=== PATIENT | female | born 1955 | race Caucasian/White ===

== ENCOUNTER 2019-11-22 12:05 | Day surgery (SDC) | payer BC ==
[2019-11-15 12:56] LABS: CLARITY,URINE CLEAR (Clear); GLUCOSE, URINE 100 mg/dl (Neg); KETONES,URINE NEGATIVE (Neg); LEUKOCYTE ESTERASE ,URINE TRACE (Neg); NITRITES, URINE NEGATIVE (Neg); OCCULT BLOOD,URINE NEGATIVE (Neg); PH,URINE 6.5 (4.8-8.0); PROTEIN,URINE NEGATIVE (Neg)
[2019-11-15 12:58] LABS: BASOPHILS # (AUTO) 0.1 X10'3 (0-0.2); BASOPHILS % (AUTO) 0.6 % (0-1); EOSINOPHILS # (AUTO) 0.2 X10'3 (0-0.9); EOSINOPHILS % (AUTO) 2.2 % (0-6); LYMPHOCYTES # (AUTO) 2.4 X10'3 (1.1-4.8); LYMPHOCYTES % (AUTO) 25.1 % (21-51); MEAN CORPUSCULAR HEMOGLOBIN 28.5 PG (27.0-31.0); MEAN CORPUSCULAR HGB CONC 33.3 g/dL (33.0-36.5); MEAN CORPUSCULAR VOLUME 85.5 FL (78-98); MEAN PLATELET VOLUME 8.6 FL (7.4-10.4); MONOCYTES # (AUTO) 1.2 X10'3 (0-0.9); MONOCYTES % (AUTO) 12.2 % (2-12); NEUTROPHILS # (AUTO) 5.7 X10'3 (1.8-7.7); NEUTROPHILS % (AUTO) 59.9 % (42-75); PRE OP HEMATOCRIT 39.8 % (35.0-45.0); PRE OP HEMOGLOBIN 13.3 g/dL (12.0-16.0); PRE OP PLATELET COUNT 309 X10'3 (140-440); RED BLOOD COUNT 4.66 X10'6 (4.20-5.60); RED CELL DISTRIBUTION WIDTH 17.4 % (11.5-14.5)
[2019-11-15 13:01] LABS: COLOR,URINE DARK YELLOW (Yellow); UA COLLECTION TYPE NON-SPECIFIED
[2019-11-15 13:04] LABS: BACTERIA,URINE FEW /HPF (Neg); MUCUS STRANDS NONE SEEN /LPF (Neg); RBC,URINE NONE SEEN /HPF (0-2); RENAL CELLS, URINE FEW /HPF; SQUAMOUS EPITHELIAL CELL,UR FEW /LPF (FEW); WBC,URINE 0-4 /HPF (0-4)
[2019-11-15 13:09] LABS: ALBUMIN 3.6 G/DL (3.4-5.0); ALBUMIN/GLOBULIN RATIO 0.8 (1.1-1.5); ALKALINE PHOSPHATASE 72 IU/L (46-116); BLOOD UREA NITROGEN 9 MG/DL (7-18); BUN/CREATININE RATIO 9.2 (6.6-38.0); CHLORIDE 99 MMOL/L (99-107); CREATININE 0.98 MG/DL (0.40-0.90); PRE OP ALT 26 U/L (30-65); PRE OP ANION GAP 11 (8-16); PRE OP AST 25 U/L (10-37); PRE OP BILIRUB, TOTAL 0.4 MG/DL (0.0-1.0); PRE OP GLUCOSE 128 MG/DL (70-104); PRE OP POTASSIUM 3.7 MMOL/L (3.4-5.1); PRE OP SODIUM 135 MMOL/L (135-145); TOTAL CARBON DIOXIDE 25.5 MMOL/L (24-32); TOTAL PROTEIN 7.9 G/DL (6.4-8.2); eGFR 58 ML/MIN
[2019-11-22] VITALS (7 sets, daily range): BP systolic 106–143; BP diastolic 64–80
[~2019-11-22] VITALS: Ht 167.6 cm; Wt 79.5 kg
[~2019-11-22 12:05] MED LIST: AMLO10TA13 PO; ATOR10TA70 PO; DOCUMENT DATE & TIME OF BETA-BLOCKER PO ONE; LISI40TA4 PO; METF-438 PO; METO50TA16 PO; PREG200C28 PO; ceFAZolin 1GM/D5W- ADD-VANTAGE 50 ML IV ONE; famotidine 20mg tablet PO ONE; ringers solution, lacted 1,000 ML IV SCH
[2019-11-22] MEDS ORDERED: metoprolol tartrate 50mg tablet PO ONE (12:35)
[2019-11-22] MEDS ORDERED: CLON-529 PO (12:36)
[2019-11-22] MEDS ORDERED: FLUO-12 PO (12:36)
[2019-11-22] MEDS ORDERED: ringers solution, lacted 1,000 ML IV SCH (12:46)
[2019-11-22] MEDS ORDERED: meperidine/PF 25mg/ml syringe IV PRN ×3 (12:50)
[2019-11-22] MEDS ORDERED: morphine 4 MG/ML inj SYRINge IV PRN (12:50)
[2019-11-22] MEDS ORDERED: proCHLORperazine 10 MG/2 ml inj IV PRN (12:50)
[2019-11-22] MEDS ORDERED: morphine 2 MG/ML inj. syringe IV PRN (12:50)
[2019-11-22] MEDS ORDERED: ondansetron/PF 4mg/2ml inj IV PRN (12:50)
[2019-11-22] MEDS ORDERED: ondansetron/PF 4mg/2ml inj ONE (13:27)
[2019-11-22] MEDS ORDERED: dexamethasone sod phosphate 10mg/ml inj ONE (13:27)
[2019-11-22] MEDS ORDERED: LIDOcaine 1%/PF 5ML 10 MG/ML VIAL ONE (13:27)
[2019-11-22] MEDS ORDERED: sevoflurane 250ml liquid IH ONE (13:27)
[2019-11-22] MEDS ORDERED: propofol 10mg/ml 20ml vial IV ONE (13:27)
[2019-11-22] MEDS ORDERED: fentaNYL/PF 50MCG/1 ML 2ML syringe ONE (13:39)
[2019-11-22] MEDS ORDERED: midazolam 2 mg/2 ml injection ONE (13:40)
[2019-11-22] MEDS ORDERED: ROPIVAcaine 0.5% (5mg/ml) 30ml vial ONE (13:40)
[2019-11-22] MEDS ORDERED: bacitracin 15gm ointment TP ONE (14:13)
--- NOTE | 2019-11-22 15:34 | NUR ---
I HAVE REVIEWED D/C INSTRUCTIONS WITH PATIENT AND FAMILY AND THEY HAVE VERBALIZED UNDERSTANDING. PATIENT D/C HOME WITH ALL BELONGINGS AND FAMILY GAVE TRANSPORT HOME. DRESSING IS [facility]. VSS. DENIES PAIN. DRESSED WITH MINIMAL ASSIST. PATIENT VOIDED AND TRANSFERED INDEPENDENTLY. SISTER GAVE RIDE HOME. CALLED MD REGARDING PRESCRIPTION AND HE STATES IT WAS CALLED TO HER PHARMACY. INFORMED PATIENT. Addendum: 11/22/19 at 1554 by Saul Mraiscal RN, RN Amended: Links added.
== END 2019-11-22 15:34 | disposition home or self-care (01) ==
LOC: PAS 12:05
PROVIDERS: ATTEND Podiatrist Foot & Ankle Surgery
DX: E11.69 Type 2 diabetes mellitus with other specified complication (principal); M86.8X7 Other osteomyelitis, ankle and foot; G89.18 Other acute postprocedural pain; Z11.59 Encounter for screening for other viral diseases; Z79.899 Other long term (current) drug therapy; Z79.82 Long term (current) use of aspirin; Z98.890 Other specified postprocedural states; Z72.89 Other problems related to lifestyle; Z90.710 Acquired absence of both cervix and uterus; Z87.891 Personal history of nicotine dependence; Z88.5 Allergy status to narcotic agent; Z79.84 Long term (current) use of oral hypoglycemic drugs
CPT/HCPCS: 28820; 36415; 64450; 80053; 81001; 82948; 85025; 87088; 93005; A6222; J0690; J2175; J2250; J3010; J7120; U0003; A4618; A6449; A7000; J1100; J2405; J2704; J2795

== ENCOUNTER 2022-10-09 01:18 | Emergency (ER) | payer BC ==
[~2022-10-09] VITALS: Ht 165.1 cm; Wt 56.4 kg
[~2022-10-09 01:18] MED LIST changes: +CLON-529 PO; -DOCUMENT DATE & TIME OF BETA-BLOCKER PO ONE; +FLUO-12 PO; +LISI40TA13 PO; -LISI40TA4 PO; -ceFAZolin 1GM/D5W- ADD-VANTAGE 50 ML IV ONE; -famotidine 20mg tablet PO ONE; -ringers solution, lacted 1,000 ML IV SCH
[2022-10-09 02:44] LABS: BASOPHILS # (AUTO) 0.1 X10'3 (0-0.2); BASOPHILS % (AUTO) 0.6 % (0-1); EOSINOPHILS # (AUTO) 0.2 X10'3 (0-0.9); EOSINOPHILS % (AUTO) 2.2 % (0-6); HEMATOCRIT 30.3 % (35.0-45.0); HEMOGLOBIN 10.3 g/dl (12.0-16.0); LYMPHOCYTES # (AUTO) 1.1 X10'3 (1.1-4.8); MEAN CORPUSCULAR HEMOGLOBIN 31.2 PG (27.0-31.0); MEAN CORPUSCULAR HGB CONC 34.2 g/dL (33.0-36.5); MEAN CORPUSCULAR VOLUME 91.2 FL (78-98); MEAN PLATELET VOLUME 9.6 FL (7.4-10.4); MONOCYTES # (AUTO) 1.1 X10'3 (0-0.9); NEUTROPHILS # (AUTO) 6.9 X10'3 (1.8-7.7); NEUTROPHILS % (AUTO) 73.2 % (42-75); PLATELET COUNT 145 X10'3 (140-440); RED BLOOD COUNT 3.32 X10'6 (4.20-5.60); RED CELL DISTRIBUTION WIDTH 13.7 % (11.5-14.5); WHITE BLOOD COUNT 9.5 X10'3 (4.5-11.0)
[2022-10-09 02:59] LABS: ALANINE AMINOTRANSFERASE 35 U/L (12-78); ALBUMIN 3.3 G/DL (3.4-5.0); ALBUMIN/GLOBULIN RATIO 0.9 (1.1-1.5); ALKALINE PHOSPHATASE 84 IU/L (46-116); ANION GAP 10 (8-16); ASPARTATE AMINO TRANSFERASE 22 U/L (10-37); BILIRUBIN,TOTAL 0.7 MG/DL (0.1-1.0); BLOOD UREA NITROGEN 41 MG/DL (7-18); BUN/CREATININE RATIO 20.5 (10.0-20.0); CALCIUM 9.4 MG/DL (8.5-10.1); CHLORIDE 94 MMOL/L (99-107); GLUCOSE 138 MG/DL (70-104); LIPASE < 50 U/L (73-393); POTASSIUM 3.7 MMOL/L (3.5-5.1); SODIUM 134 MMOL/L (135-145); TOTAL CARBON DIOXIDE 30.3 MMOL/L (24-32); TOTAL PROTEIN 7.1 G/DL (6.4-8.2); eGFR 25 ML/MIN
[2022-10-09] MEDS ORDERED: normal saline 1000ML IV soln IVB ONE ×2 (03:10→05:25)
[2022-10-09] MEDS ORDERED: bisacodyl 10mg suppository rectal RC STA (05:13)
[2022-10-09] MEDS ORDERED: methylnaltrexone br 12mg/0.6ml inj***SubQ only SQ ONE (05:15)
[2022-10-09] MEDS ORDERED: metoclopramide 5 mg/ml inj IV ONE (05:15)
--- NOTE | 2022-10-09 06:51 | NUR ---
Assumed care of patient, patient resting comfortably at this time, no acute distress noted
[2022-10-09 07:42] LABS: CLARITY,URINE CLEAR (Clear); GLUCOSE, URINE NEGATIVE (Neg); KETONES,URINE NEGATIVE (Neg); LEUKOCYTE ESTERASE ,URINE NEGATIVE (Neg); NITRITES, URINE NEGATIVE (Neg); OCCULT BLOOD,URINE NEGATIVE (Neg); PH,URINE 7.5 (4.8-8.0); PROTEIN,URINE NEGATIVE (Neg); UROBILINOGEN,URINE 0.2 E.U/dL (0.2-1.0)
[2022-10-09 07:46] LABS: COLOR,URINE STRAW (Yellow); UA COLLECTION TYPE CLN CATCH MIDSTREAM
[2022-10-09] MEDS ORDERED: POLY17PO10 PO (08:10)
[2022-10-09 08:19] VITALS: BP 170/98
--- NOTE | 2022-10-09 08:21 | NUR ---
Patient awaiting transport for caravan for [employer].
== END 2022-10-09 09:00 | disposition home or self-care (01) ==
LOC: ER 01:19
DX: K59.00 Constipation, unspecified (principal); R10.84 Generalized abdominal pain; R19.7 Diarrhea, unspecified; I11.0 Hypertensive heart disease with heart failure; I50.9 Heart failure, unspecified; E78.00 Pure hypercholesterolemia, unspecified; E11.9 Type 2 diabetes mellitus without complications; Z90.710 Acquired absence of both cervix and uterus; Z88.8 Allergy status to other drugs, medicaments and biological substances; Z79.899 Other long term (current) drug therapy
CPT/HCPCS: 36415; 74018; 74176; 80053; 81003; 83690; 83735; 83880; 85025; 96361; 96372; 96374; 99285; J2212; J2765; J7030

== ENCOUNTER 2023-09-17 19:34 | Emergency (ER) | payer BC, OTHER ==
[~2023-09-17] VITALS: Ht 167.6 cm; Wt 68.2 kg
[~2023-09-17 19:34] MED LIST changes: -PREG200C28 PO; +PREG200C29 PO
[2023-09-17] MEDS ORDERED: PERM60CR19 TP (20:10)
[2023-09-17] MEDS ORDERED: CEPH-585 PO (20:10)
[2023-09-17] MEDS ORDERED: DOXY-457 PO (20:10)
[2023-09-17] MEDS: DOXYCYCLINE 100MG CAPSULE PO STA (20:47)
[2023-09-17] MEDS: cephalexin 250mg capsule PO ONE (20:49)
[2023-09-17 20:55] VITALS: BP 141/81; PULSE 78; RESP 16; TEMP 97.8; O2SAT 98
== END 2023-09-17 20:59 | disposition home or self-care (01) ==
LOC: ER 19:35
DX: L03.011 Cellulitis of right finger (principal); I11.0 Hypertensive heart disease with heart failure; I50.9 Heart failure, unspecified; E11.42 Type 2 diabetes mellitus with diabetic polyneuropathy; E78.00 Pure hypercholesterolemia, unspecified; Z90.49 Acquired absence of other specified parts of digestive tract; Z88.8 Allergy status to other drugs, medicaments and biological substances; Z79.84 Long term (current) use of oral hypoglycemic drugs; Z79.899 Other long term (current) drug therapy
CPT/HCPCS: 99284; A6449

== ENCOUNTER 2024-11-26 10:09 | Emergency (ER) | payer OTHER ==
[~2024-11-26] VITALS: Ht 165.1 cm; Wt 87.3 kg
[~2024-11-26 10:09] MED LIST changes: -LISI40TA13 PO; +LISI40TA20 PO
--- NOTE | 2024-11-26 10:45 | ELECTROCARDIOGRAPH REPORT ---
[facility] Test Date: 2024-11-26 Test Time: 10:24:46 Pat Name: PRASHANTH ROTH Department: EMERGENCY ROOM Room: Gender: F Welcome Wagon Hostess: NRIU : 1955 Requested By: DEPARTMENT EMERGENCY Order Number: [id number] Reading MD: Measurements Intervals Leslie Rate: 104 P: 0 UT: 0 QRS: 82 QRSD: 83 T: 54 QT: 483 QTc: 636 Interpretive Statements Atrial fibrillation Borderline right axis deviation Borderline repol abnormality, diffuse leads Prolonged QT interval Please click the below link to view image of tracing.
--- NOTE | 2024-11-26 11:14 | Physician Documentation ---
History of Present Illness ~ Chief Complaint: Hypertension Stated Complaint: HIGH BP Time Seen by MD: 10:44 OK to notify your PCP?: Yes HPI This is a 68-year-old female with multiple medical comorbidities including congestive heart failure, diabetes, chronic kidney disease, status post bilateral midfoot amputations, presents for evaluation of hypotension. She took her medications and a couple of hours later, because she was not feeling good, she checked her blood pressure and it was elevated of 170/114. She does experience headache, lightheadedness, shortness of breath. She reports bilateral lower extremity swelling that is worse than normal. Shortness a breath is exertional and positional. She also reports that she has been experiencing substernal chest pain for the last four days. Because of limited mobility she is not certain whether it is exertional. Did not attempt to treat it. Not clear why she did not present for evaluation of chest pain. She had an echocardiogram last month that evidently showed that her AFib has a resolved and her ventricles were doing good. Has not had a stress test in several years. Seen by account executive software sales Dr. Govea No concern for tobacco, alcohol or illicit substances use Medication Reconciliation Allergies: Coded Allergies: codeine (Unverified Allergy, Mild, hallucinations, 11/26/24) Scheduled Amlodipine Besylate (Amlodipine Besylate), 1 TAB PO DAILY, (Reported) Atorvastatin Calcium (Atorvastatin Calcium), 1 TAB PO HS, (Reported) Clonidine Hcl* (Catapres*), 0.1 MG PO BID Fluoxetine Hcl (Prozac), 1 CAP PO DAILY Lisinopril* (Lisinopril*), 20 MG PO BID, (Reported) Metformin HCl (Metformin HCl), 1 TAB PO BID, (Reported) Metoprolol Tartrate (Metoprolol Tartrate), 1 TAB PO DAILY, (Reported) Pregabalin (Pregabalin), 1 TAB PO BID, (Reported) Past Medical History Past Medical History: Peripheral Neuropathy, Congestive Heart Failure, High Cholesterol, Hypertension, Pancreatitis, UTI, Diabetes Past Surgical History: hysterectomy, orthopedic surgeries Drug Use: none Lives In: Assisted Care Review of Systems ROS 10 point review of systems was performed and unless noted above in HPI is negative for acute process/complaint. Physical Exam Vital Signs: Temperature: 98.2, Source: Temporal, Heart Rate: 90, Respiratory Rate: 14, BP: 170/100, Pulse Oximetry: 100, Weight: 87.270 Oxygen Flow Rate: 0 Physical Exam GENERAL: Awake, alert, oriented, GCS 15, no apparent distress, non-toxic appearing, answers questions, follows commands appropriately. Examined in bed 13., accompanied by has been HEENT: Atraumatic, normocephalic, pupils equal, extraocular muscles intact, sclerae anicteric, mucus membranes moist, oropharynx is clear, no stridor. NECK: supple, full active range of motion, trachea midline, no thyromegaly, no lymphadenopathy, no JVD. CARDIOVASCULAR: Tachycardic and irregularly irregular rate/rhythm, no murmurs/gallops/rubs, Pulses are 2+ in all extremities and symmetric. Capillary refill less than 2 seconds. PULMONARY: Nonlabored, good air movement ,no respiratory distress, speaking in full sentences, clear to auscultation bilaterally, no wheezing, no ronchi, no rales, no accessory muscle use. GASTROINTESTINAL: Soft, non-tender, non-distended, normal active bowel sounds, no organomegaly, no pulsatile masses, no CVA tenderness. NEUROLOGIC: Lucid with normal mental status. Normal facial symmetry. Moves all extremities symmetrically and with purpose. No truncal ataxia. Speech is fluid without evidence of dysarthria or aphasia, no focal deficits appreciated. MUSCULOSKELETAL: There is full range of motion of all extremities. There is no joint pain or joint swelling or joint erythema. There is no muscle pain or t enderness or swelling. EXTREMITIES: warm, well-perfused, no cyanosis, no clubbing, bilateral lower extremity edema, no acute deformities. Skin: warm, dry, no rashes or lesions, no jaundice, no petechiae orpurpura. No ecchymosis. PSYCHIATRIC: Normal affect, normal insight, normal concentration. Focused exam: [] Progress Results/Orders Results/Orders Orders - MAGY MAN DO Chest,Single View (11/26/24 11:07) Hs Troponin I W Calculations (11/26/24 13:07) Hs Troponin I W Calculations (11/26/24 14:07) Completed Orders - MAGY MAN DO Cbc/Diff (11/26/24 11:07) Chest,Single View (11/26/24 11:07) PBNP (11/26/24 11:07) MG (11/26/24 11:07) CMP (11/26/24 11:07) Hs Troponin I W Calculations (11/26/24 11:07) Man Diff (11/26/24 10:30) Vital Signs 11/26/24 11/26/24 11/26/24 11/26/24 10:15 11:00 11:00 12:29 Temp 98.2 98.2 98.2 Pulse 90 85 95 Resp 14 16 16 16 B/P (MAP) 170/100 186/138 (154) 159/106 (123) Pulse Ox 100 98 97 O2 Flow Rate 0 0 0 Laboratory Tests Test 11/26/24 10:30 White Blood Count 7.0 Red Blood Count 4.66 Hemoglobin 14.6 Hematocrit 42.7 Mean Corpuscular Volume 91.7 Mean Corpuscular Hemoglobin 31.3 H Mean Corpuscular Hemoglobin Concent 34.2 Red Cell Distribution Width 13.3 Platelet Count 159 Mean Platelet Volume 9.8 Neutrophils (%) (Auto) 58.9 Lymphocytes (%) (Auto) 19.7 L Monocytes (%) (Auto) 18.5 H Eosinophils (%) (Auto) 2.1 Basophils (%) (Auto) 0.8 Neutrophils # (Auto) 4.1 Lymphocytes # (Auto) 1.4 Monocytes # (Auto) 1.3 H Eosinophils # (Auto) 0.1 Basophils # (Auto) 0.1 CBC Comment Differential Total Cells Counted 100 Neutrophils % (Manual) 65.0 Lymphocytes % (Manual) 14.0 L Monocytes % (Manual) 18.0 H Eosinophils % (Manual) 2.0 Reactive Lymphocytes 1.0 H Platelet Estimate Normal Red Blood Cell Morphology Normal Basophilic Stippling Sodium Level 139 Potassium Level 3.2 L Chloride Level 102 Carbon Dioxide Level 29.1 Anion Gap 8 Blood Urea Nitrogen 34 H Creatinine 2.68 H Estimated GFR/1.73 m2 18 BUN/Creatinine Ratio 12.7 Glucose Level 216 H Calcium Level 8.8 Magnesium Level 2.2 Total Bilirubin 0.5 Aspartate Amino Transf (AST/SGOT) 17 Alanine Aminotransferase (ALT/SGPT) 11 L Alkaline Phosphatase 118 H Troponin I High Sensitivity 11 Pro-B-Type Natriuretic Peptide 6829 H Total Protein 6.3 L Albumin 2.2 L Globulin 4.1 Albumin/Globulin Ratio 0.5 L Chemistry Comments EKG/XRAY/CT/US/VASC/MRI EKG : Additional Comment EKG was obtained and interpreted by myself showing AFib with a RVR, rate of 104, narrow QRS, no QT prolongation, normal axis, no STEMI Medical Decision Making Findings Facility Status: [facility], [facility] process The plan was discussed with the patient, who demonstrates clear understanding of the plan and is in agreement with the plan unless otherwise noted in the chart. All questions have been answered, all concerns were addressed unless otherwise documented. I was available throughout their ED stay for frequent reassessment and questions. Differential Diagnoses (considered and possible or likely): [Hypotension, hypertensive urgency, hypertensive emergency with a end-organ damage, CHF exacerbation, with a respect to chest pain Differential diagnosis considered includes chest wall pain, pleurisy, pneumonia, pulmonary embolus, GERD, esophagitis, gastritis, anxiety, stress reaction, costochondritis, acute coronary syndrome, aortic dissection, pericarditis, myocarditis, or pne umothorax.] ??Differential Diagnoses (considered and unlikely, not requiring evaluation currently): [Aortic/great vessels dissection was considered but it is unlikely based on absence of ripping, tearing, migratory chest pain, absence of syncope or focal neurologic deficits, physical examination indicating equal and symmetric pulses.] MDM Data Please see [facility] for the following: Independent Historians and external Records Review. Historian: [Patient] Independent Historians: ?[Patient's , record review] Medication Management: [Reviewed medication list] Social History and determinants: [Reviewed] Please see the body of the note for the following: Any independent interpretations of ECG, imaging studies. All vitals signs/haemodynamics, ordered tests were independently reviewed and interpreted by myself. Nursing triage complaint and vitals reviewed, additional nursing notes were reviewed as available and I agree unless otherwise noted or documented in contradiction in the chart Vital Signs: Independently reviewed Labs: Independently interpreted Imaging: Independently interpreted Old Medical Records: Independently reviewed, see HPI for relevant summary and information Pulse Oximetry: [95%] interpreted as [normal on room air] by me [Manager Business Information: [Tachycardic Rate, irregularly irregular rhythm, AFib with a RVR] reviewed and interpreted by me] Additionally notably showing: [HEMODYNAMICS REVIEWED. THE PATIENT ISN'T FEBRILE, NOT TACHYCARDIC, SHE IS HYPOTENSIVE, NO EVIDENCE OF RESPIRATORY DISTRESS. LABORATORY STUDIES SHOW NO LEUKOCYTOSIS, NO SIGNIFICANT NEUTROPHILIC PREDOMINANCE. METABOLIC PANEL SHOWS CKD. BNP IS MARKEDLY ELEVATED CONCERNING FOR CHF EXACERBATION. TROPONIN IS NORMAL. CHEST X-RAY CONSISTENT WITH A PULMONARY VASCULAR CONGESTION.] Tests considered but not ordered include: [Echocardiogram can be done on an inpatient basis as well as medication adjustments] Social Determinants of Health Impact: Patient was evaluated in [facility], [facility] [place] to healthcare due to below par ratio of patient to medical providers. [] Comorbid Conditions Impacting Present Evaluation and Care/Treatment: [Multiple] Management Discussions with other Healthcare Providers: [] Treatment and Disposition Medication Management (Given or considered): []. See EMR for details Consideration for Hospitalization/Escalation/Deescalation of Care: Admission for observation has been considered, and a frankly feel it is necessary for congestive heart failure exacerbation treatment. I had discussed it with the patient. She is adamant that she does not want to be admitted despite of me offering admission. She does in fact have reliable follow-up with her account executive software sales in his able to get a hold of the account executive software sales today. ?ED Course:?[Mild improvement of blood pressure throughout the day] ?Shared decision making:?[Patient is hemodynamically stable for discharge home with follow with their primary care provider. [ ] Specific and cautious return precautions provided and discussed with full understanding. Any incidental findings were also discussed and follow up recommendations given. [] All questions answered. Patient/family were able to verbalize back return precautions. Patient/family agree to plan. Copies of imaging and laboratory studies were provided.] Code status:?FULL Please see the full Electronic Medical Record for full details of nursing d ocumentation, medications list, other records of complete past medical history and conditions, vital signs, laboratory studies, and any radiologic study interpretations by radiologists. Portions of this note were completed using [employer] dictation software and as a result there may exist minor errors in spelling. I have reviewed elements of past family and social history and agree as included in note. Departure Disposition: 01 HOME / SELF CARE / HOMELESS Impression: Primary Impression: Acute exacerbation of congestive heart failure Additional Impressions: Hypertension Chronic kidney disease Condition: Stable Discharge Instructions: Heart Failure Exacerbation, Hypertension, Adult Additional Instructions: If you change your mind you are always welcome to return for admission for heart failure exacerbation treatment Referrals: NO PRIMARY CARE PROVIDER (PCP) Education Educated: Patient Educated regarding: diagnosis, treatment, prognosis, need for follow up Signature Scribe Signature: No scribe Attestation: This note accurately reflects clinical decisions, work performed by myself, DO DONOVAN Iraheta NICHOLAS M DO Nov 26, 2024 11:14
[2024-11-26 11:24] LABS: MEAN PLATELET VOLUME 9.8 FL (7.4-10.4); RED CELL DISTRIBUTION WIDTH 13.3 % (11.5-14.5)
[2024-11-26 11:36] LABS: CREATININE 2.68 MG/DL (0.40-0.90); TOTAL CARBON DIOXIDE 29.1 MMOL/L (24-32); eCRCL 19 ML/MIN; eGFR 18 ML/MIN
--- NOTE | 2024-11-26 11:41 | RADIOLOGY REPORT ---
DI CHEST,SINGLE VIEW, HISTORY: Shortness a breath COMPARISON: None None TECHNICAL DATA: 1 view of the chest was obtained. FINDINGS: Lines and tubes: None Cardiomediastinal silhouette: Enlarged Pulmonary vasculature: Prominent Lung expansion: normal Lung airspace: normal Lung interstitium: normal Pleura: normal Pneumothorax: no Bones: Unremarkable Other: no IMPRESSION: Cardiomegaly with pulmonary vascular congestion.
[2024-11-26 11:43] LABS: EOSINOPHILS % (MANUAL) 2.0 % (0-6); LYMPHOCYTES % (MANUAL) 14.0 % (21-51); MONOCYTES % (MANUAL) 18.0 % (2-12); NEUTROPHILS % (MANUAL) 65.0 % (42-75); PLATELET ESTIMATE NORMAL; PRO BRAIN NATRIURETIC PEPTIDE 6829 PG/ML (0-125); REACTIVE LYMPHOCYTES % 1.0 % (0-0)
[2024-11-26 12:29] VITALS: BP 159/106; PULSE 95; RESP 16; TEMP 98.2; O2SAT 97
== END 2024-11-26 13:24 | disposition home or self-care (01) ==
LOC: ER 10:10
DX: I13.0 Hypertensive heart and chronic kidney disease with heart failure and stage 1 through stage 4 chronic kidney disease, or unspecified chronic kidney disease (principal); E11.22 Type 2 diabetes mellitus with diabetic chronic kidney disease; E11.42 Type 2 diabetes mellitus with diabetic polyneuropathy; I50.9 Heart failure, unspecified; N18.9 Chronic kidney disease, unspecified; I48.91 Unspecified atrial fibrillation; E78.00 Pure hypercholesterolemia, unspecified; Z90.710 Acquired absence of both cervix and uterus; Z88.5 Allergy status to narcotic agent; Z79.899 Other long term (current) drug therapy; Z79.84 Long term (current) use of oral hypoglycemic drugs
CPT/HCPCS: 36415; 71045; 80053; 83735; 83880; 84484; 85007; 85025; 93005; 99285